=== PATIENT | male | born 1975 | race Caucasian/White ===

== ENCOUNTER 2020-03-28 12:43 | Emergency (ER) | payer BC ==
[2020-03-28] MEDS ORDERED: MORPHINE SULFATE 4 MG/ML SYRINGE IV STA (13:08)
[2020-03-28] MEDS ORDERED: ONDANSETRON 4 MG/2 ML VIAL IVP STA (13:08)
[2020-03-28] MEDS ORDERED: SODIUM CHLORIDE 0.9% 1,000 ML IV STA (13:08)
[2020-03-28] MEDS ORDERED: PANTOPRAZOLE 40 MG/10 ML VIAL IVP STA (13:10)
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
[2020-03-28 13:44] LABS: Basophils % (A) 0 %; Eosinophils # (A) 0.1 k/uL (0-0.7); Eosinophils % (A) 1 %; HCT 50.1 % (39.0-53.0); HGB 17.3 gm/dL (13.0-17.5); Lymphocytes # (A) 2.3 k/uL (1.0-4.8); Lymphocytes % (A) 18 %; MCHC 34.4 g/dL (31.0-37.0); MCV 84.4 fL (80.0-100.0); Monocytes # (A) 0.9 k/uL (0-1.0); Monocytes % (A) 7 %; Neutrophils # (A) 9.6 k/uL (1.3-7.7); Neutrophils % (A) 73 %; Platelet Count 378 k/uL (150-450); RBC 5.94 m/uL (4.30-5.90); RDW 13.4 % (11.5-15.5); WBC 13.1 k/uL (3.8-10.6)
[2020-03-28 13:47] LABS: ALT 14 U/L (4-49); AST 24 U/L (17-59); African American GFR (CKD) >90 (>60 ml/min/1.73 sqM); Alkaline Phosphatase 69 U/L (38-126); Anion Gap 12 mmol/L; Blood Urea Nitrogen 17 mg/dL (9-20); Calcium 10.3 mg/dL (8.4-10.2); Carbon Dioxide 33 mmol/L (22-30); Chloride 90 mmol/L (98-107); Glucose 119 mg/dL (74-99); Non-African American GFR(CKD) >90 (>60 ml/min/1.73 sqM); Potassium 3.4 mmol/L (3.5-5.1); Sodium 135 mmol/L (137-145); Total Bilirubin 0.6 mg/dL (0.2-1.3); Total Protein 8.2 g/dL (6.3-8.2)
--- NOTE | 2020-03-28 14:08 | US ---
EXAMINATION TYPE: US gallbladder DATE OF EXAM: 03/28/2020 COMPARISON: NONE CLINICAL HISTORY: RUQ epigastric pain. Pain. EXAM MEASUREMENTS: Liver Length: 17.5 cm Gallbladder Wall: 0.2 cm CBD: 0.4 cm Right Kidney: 9.8 x 4.2 x 5.0 cm Pancreas: wnl, main pancreatic duct= 2.2 mm Liver: wnl Gallbladder: wnl Evidence for sonographic Collazo's sign: neg CBD: wnl Right Kidney: No hydronephrosis or masses seen IMPRESSION: 1. Mild hepatomegaly.
[2020-03-28] MEDS ORDERED: MAG HYDROX/AL HYDROX/SIMETH 30 ML, HYOSCYAMINE ELIXIR 10 ML, LIDOCAINE VISCOUS 2% 10 ML PO STA ×3 (15:12)
--- NOTE | 2020-03-28 15:32 | XR ---
EXAMINATION TYPE: XR abdomen acute w cxr DATE OF EXAM: 03/28/2020 COMPARISON: None HISTORY: Epigastric pain TECHNIQUE: Acute abdominal series performed with a frontal chest upright and supine views the abdomen . FINDINGS: Heart size is normal. Pulmonary vasculature is normal. Lungs are clear. No free air is under the diaphragm. There are some scattered air-fluid levels which may be within the transverse colon. Nonspecific small bowel gas is present. No mass effect is evident. No differential air-fluid levels are present. Organomegaly is not evident. Psoas margins are normal. IMPRESSION: 1. Nonspecific acute abdominal series
[2020-03-28] MEDS ORDERED: ONDANSETRON 4 MG ODT STARTER PACK 2 TAB BTL PO STA (16:49)
[2020-03-28 17:16] VITALS: BP 117/80; PULSE 66; RESP 18; TEMP 98.8
== END 2020-03-28 17:05 | disposition home or self-care (01) ==
LOC: EC 12:43
DX: R10.13 Epigastric pain (principal); R10.11 Right upper quadrant pain; R11.2 Nausea with vomiting, unspecified; D72.829 Elevated white blood cell count, unspecified; R16.0 Hepatomegaly, not elsewhere classified; F17.200 Nicotine dependence, unspecified, uncomplicated
CPT/HCPCS: 36415; 93005; 80053; 83605; 83690; 84484; 85025; 74022; 76705; 99285; 96374; 96375 ×2; 96361; J2270; J2405; S0119; C9113

== ENCOUNTER → 2020-04-02 | Outpatient (CLI) | payer BC | END | disposition home or self-care (01) | LOC: LABWHC1 11:48 | PROVIDERS: ATTEND Internal Medicine Gastroenterology | DX: Z11.59 Encounter for screening for other viral diseases (principal) | CPT/HCPCS: 87635 ==

== ENCOUNTER → 2020-04-04 | Day surgery (SDC) | payer BC ==
[2020-04-03 10:46] VITALS: BMI 23.5
[~2020-04-04] MED LIST: LACTATED RINGERS 1,000 ML IV ONE; LACTATED RINGERS 1,000 ML IV SCH; LIDOCAINE 1% (10MG/ML) FOR IV START INTRADERMA ONE; PROPOFOL 10 MG/ML 20 ML VIAL IV ONE
[2020-04-04 08:24] VITALS: TEMP 97.4
--- NOTE | 2020-04-04 09:59 | P.PCN ---
Date of Procedure: 04/04/20 Procedure(s) Performed: BRIEF HISTORY: Patient is a 44-year-old, pleasant, white male scheduled for an upper endoscopy for evaluation of severe epigastric pain associated with nausea vomiting for the last 1 month duration. He went to the emergency room and was started on Protonix and Zofran and symptoms are gradually improving. He takes NSAIDs regularly. PROCEDURE PERFORMED: Esophagogastroduodenoscopy with biopsy. PREOPERATIVE DIAGNOSIS: Epigastric pain/nausea vomiting of 4 weeks duration. IV sedation per anesthesia. PROCEDURE: After informed consent was obtained, the patient was brought into the endoscopy unit. IV sedation was administered by Anesthesia under continuous monitoring. Initially the Olympus GIF-140 video endoscope was inserted into the mouth. Esophagus intubated without any difficulty. It was gradually advanced into the stomach and duodenum and carefully examined. The bulb and the second part of the duodenum appeared normal. The scope at this time was withdrawn to the stomach, adequately insufflated with air, and upon careful examination, mucosa of the antrum, had 3 large superficial antral ulcers measuring between 3 cm right involving the prepyloric area, in the proximal antrum and along the incisura angularis clean base consistent with benign ulcers. Status post biopsies from the margin of the ulcers. body, cardia and the fundus appeared normal. The scope was then withdrawn into the esophagus. The GE junction was located at 39 cm from the incisors. The esophagus appeared normal. There were no erosions or ulcerations seen and the patient tolerated the procedure well. IMPRESSION: 1. 3 large superficial antral ulcers measuring 2-3 cm in size with no active bleeding. Status post multiple biopsies. 2. Mild antral gastritis. RECOMMENDATIONS: The findings of this examination were discussed with the patient as well as his family. He was advised to continue with Prilosec 20 mg daily and avoid NSAIDs. He will follow with the biopsy results. He'll be seen in office in 2 months. Plan a repeat upper endoscopy in 3-4 months to document ulcer healing..
[2020-04-04 10:19] VITALS: RESP 16
[2020-04-04 10:30] VITALS: BP 123/73; PULSE 70
== END ==
LOC: ORWHC2ENDO 08:04
PROVIDERS: ATTEND Internal Medicine Gastroenterology
DX: K29.50 Unspecified chronic gastritis without bleeding (principal); K25.9 Gastric ulcer, unspecified as acute or chronic, without hemorrhage or perforation; K21.9 Gastro-esophageal reflux disease without esophagitis; F17.200 Nicotine dependence, unspecified, uncomplicated; Z88.6 Allergy status to analgesic agent; Z90.49 Acquired absence of other specified parts of digestive tract; Z79.899 Other long term (current) drug therapy
CPT/HCPCS: 88305; 88342; 43239; J2704